=== PATIENT | male | born 1980 | race Caucasian/White ===

== ENCOUNTER 2025-06-05 00:08 | Emergency (ER) | payer OTHER, SELFPAY ==
[2025-06-05 00:45] LABS: Glucose, Urine (Dipstick) Negative (Negative); Leukocyte Negative (Negative); Protein, Urine (Dipstick) 100 mg/dL (Neg-Trace); Specific Gravity, Urine 1.015 (1.005-1.030)
[2025-06-05 00:48] LABS: Bacteria/HPF Rare-Few HPF (None Seen); CAUTI Indications for Culture Alt mental st,lethar; RBC/HPF 0-3 HPF (0-3); WBC/HPF 0-3 HPF (0-3)
[2025-06-05 00:49] LABS: Urine Culture Reflex No No
[2025-06-05 00:55] LABS: Cocaine Metabolite Screen Negative (Negative); THC/Cannabinoid Screen Negative (Negative); Tricyclic Screen Negative (Negative)
[2025-06-05] MEDS ORDERED: Ketorolac Tromethamine 30 MG (1 mL) VIAL ONE (01:21)
[2025-06-05] MEDS ORDERED: predniSONE 20 MG TAB ONE (01:21)
== END 2025-06-05 01:44 | disposition home or self-care (01) ==
LOC: BURERS 00:08
DX: R51.9 Headache, unspecified (principal); B34.9 Viral infection, unspecified; F84.0 Autistic disorder
CPT/HCPCS: 80306; 81001; 87428; 96372; 99283; J1885; J7512; Q0164